=== PATIENT | male | born 1940 ===

== ENCOUNTER 2018-05-02 09:56 | Day surgery (SDC) | payer MEDICARE, MEDICAID ==
[2018-05-02] MEDS ORDERED: Gentamicin 160 MG in Sodium Chloride 0.9% 100 ML IVPB ONE (12:15)
[2018-05-02] MEDS ORDERED: Midazolam 2 MG/2 ML VIAL ONE (12:22)
[2018-05-02] MEDS ORDERED: Propofol 10 mg/ml Inj (20 ML) ONE (12:22)
[2018-05-02] MEDS ORDERED: Ciprofloxacin 400mg/200ml D5W 400 MG/200 ML BAG IVPB ONE (12:39)
[2018-05-02] MEDS ORDERED: Lidocaine 2% Jelly (Uro-Jet) ONE (12:39)
--- NOTE | 2018-05-02 13:12 | PCM.SURG1 ---
Surgeon's Initial Post Op Note - Surgeon's Notes Surgeon: +[employer] Director: NA Type of Anesthesia: General Mask Anesthesia Administered By: Staff Pre-Operative Diagnosis: Hx bladder tumor Operative Findings: BT Post-Operative Diagnosis: BT Operation Performed: Cysto Bx Fulgaration Specimen/Specimens Removed: BT Estimated Blood Loss: EBL {In ML}: 0 Blood Products Given: N/A Drains Used: No Drains Post-Op Condition: Good Date of Surgery/Procedure: 05/02/18 Time of Surgery/Procedure: 13:11
[2018-05-02] MEDS ORDERED: HYDROmorphone 0.5 mg/0.5 ml ISec IVP PRN (13:19)
[2018-05-02 14:35] VITALS: BP 104/70; PULSE 81; RESP 18; TEMP 97; O2SAT 99
--- NOTE | 2018-05-03 20:37 | OP ---
PROCEDURE DATE: 05/02/2018 PREOPERATIVE DIAGNOSIS: History of bladder tumor. POSTOPERATIVE DIAGNOSIS: Bladder tumor. PROCEDURES: Cystoscopy, biopsy and fulguration of bladder tumor. DESCRIPTION OF PROCEDURE: The patient was asked to sign a detailed informed consent in the presence of his . He signed the consent. He was brought into the room and a time-out was taken according to the rules and regulations of [facility]. The patient received prophylactic antibiotics. He was cystoscoped with a #21 Storz panendoscope. There was a small bladder tumor noted at the bladder neck. This was grasped with a Da forceps and removed. The base was fulgurated. The patient tolerated this very well. There was no evidence of residual tumor. The patient was sent to the recovery room in good condition. Krish Marquez MD
== END 2018-05-02 15:39 | disposition home or self-care (01) ==
LOC: C.SDS 09:56
PROVIDERS: ATTEND Urology
DX: C67.5 Malignant neoplasm of bladder neck (principal)
CPT/HCPCS: 52204; 88305; J0744; J1580

== ENCOUNTER 2018-09-12 10:25 | Day surgery (SDC) | payer MEDICARE, MEDICAID ==
[2018-09-12] MEDS ORDERED: Etomidate 20 mg/10ml Inj IV ONE (12:17)
[2018-09-12] MEDS ORDERED: Gentamicin 160 MG in Sodium Chloride 0.9% 100 ML IVPB ONE (12:17)
[2018-09-12] MEDS ORDERED: Propofol 10 mg/ml Inj (20 ML) ONE (12:17)
[2018-09-12] MEDS ORDERED: Lidocaine Hydrochloride 5 ML INJ ONE (12:18)
[2018-09-12] MEDS ORDERED: Ciprofloxacin 400mg/200ml D5W 400 MG/200 ML BAG IVPB ONE (12:27)
--- NOTE | 2018-09-12 13:03 | PCM.SURG1 ---
Surgeon's Initial Post Op Note - Surgeon's Notes Surgeon: Jimmy [employer] Officer: benny Type of Anesthesia: General LMA Anesthesia Administered By: staff Pre-Operative Diagnosis: Hx bladder tumor Operative Findings: small BT Post-Operative Diagnosis: Small BT Operation Performed: Cysto Biopsy and fulguration of BT Specimen/Specimens Removed: Blader tumor Estimated Blood Loss: EBL {In ML}: 0 Blood Products Given: N/A Drains Used: No Drains Post-Op Condition: Good Date of Surgery/Procedure: 09/12/18 Time of Surgery/Procedure: 13:03
[2018-09-12 13:43] VITALS: O2SAT 99
[2018-09-12 14:31] VITALS: TEMP 97.5
[2018-09-12 14:38] VITALS: BP 130/70; PULSE 66; RESP 18
--- NOTE | 2018-09-13 08:57 | OP ---
PROCEDURE DATE: 09/12/2018 PREOPERATIVE DIAGNOSIS: Bladder tumor. POSTOPERATIVE DIAGNOSIS: Bladder tumor. PROCEDURE: Cystoscopy, biopsy and fulguration of bladder tumor. DESCRIPTION OF PROCEDURE: The patient was asked to sign a detailed and informed consent in the presence of his . He agreed to the risks and complications of the procedure as well as his agreed and she signed the consent also. He was brought into the room and draped and prepped in the usual manner. A time-out was taken according to the rules and regulations of [facility]. The patient was then cystoscoped with a #21 Storz panendoscope after careful draping and prepping. He had received prophylactic antibiotics. The pendulous urethra was normal. The prostatic urethra showed evidence of previous resection or laser prostatectomy. The bladder was entered atraumatically. There was a single small urothelial tumor on the posterior wall of the bladder at approximately 3 o'clock in the midline. The tumor was biopsied and the base was fulgurated extensively. There were no other visible tumors. The patient tolerated this procedure well and was sent to the recovery room in good condition. Krish Marquez MD
== END 2018-09-12 14:52 | disposition home or self-care (01) ==
LOC: C.SDS 10:25
PROVIDERS: ATTEND Urology
DX: C67.4 Malignant neoplasm of posterior wall of bladder (principal)
CPT/HCPCS: 52204; 82948; 88305; J0744; J1580